=== PATIENT | male | born 1945 | race Caucasian/White ===

== ENCOUNTER 2020-02-26 23:45 | Inpatient (IN) ==
[2020-02-26] MEDS ORDERED: SODIUM CHLORIDE 0.9% 500 ML IV STA (23:55)
[2020-02-27 00:17] LABS: Basophils % 0.2 % (0.0-0.8); Hematocrit 25.9 VOL% (42.0-52.0); Hemoglobin 8.2 GM/DL (14.0-18.0); Immature Granulocytes % 1.6 %; Lymphocytes # 0.6 10*3/uL (1.4-4.0); Lymphocytes % 3.2 % (21.2-54.2); Mean Corpuscular HGB Conc 31.7 GM/DL (32-36); Mean Corpuscular Volume 88.4 FL (87-102); Mean Platelet Volume 9.7 FL (9.6-12.0); Monocytes % 9.3 % (1.7-12.7); Neutrophils % 85.7 % (38.7-73.9); Platelet Count 303 T/CUMM (130-400); Red Blood Count 2.93 MC/CUMM (3.8-5.5); Red Cell Distribution Width 17.2 % (9.3-17.3); White Blood Count 19.4 T/CUMM (4-12)
[2020-02-27 00:21] LABS: Allen Test Positive; Pt O2 Delivery Device Ventilator
[2020-02-27 00:25] LABS: ABG Base Excess -10.3 MMOL/L (-2.5-2.5); ABG HCO3 16.2 MMOL/L (20-26); ABG Oxygen Saturation 99.9 % (95-100); ABG PCO2 37.2 MM HG (35-48); ABG PH 7.249 (7.35-7.45); ABG TCO2 15.6 MMOL/L (23-27)
[2020-02-27 00:29] LABS: Bilirubin,Urine Negative (Negative); Blood, Urine Small mg/dL (Negative); Glucose,Urine (UA) Negative (Negative); Granular Casts,Urine 5 /LPF (0-1); Ketones,Urine Negative (Negative); Mucus,Urine Occasional /LPF (Occasional); Nitrite,Urine Negative (Negative); Protein,Urine 30 MG/DL; RBC,Urine 23 /HPF (0-4); Red Blood Cell Casts,Urine 1 /LPF (<1); Urine Appearance Slightly Hazy (Clear); Urine Color Amber (Yellow); Urine Specific Gravity 1.013 (1.001-1.035); Urine Urobilinogen < 2.0 EU/DL (0.2-1.0); WBC,Urine 18 /HPF (0-6)
[2020-02-27 00:35] LABS: Albumin 2.1 G/DL (3.4-5.0); Bilirubin,Total 0.8 MG/DL (0.2-1.0); Calcium 8.5 MG/DL (8.5-10.1); Total Protein 6.2 G/DL (6.4-8.3)
[2020-02-27 00:47] LABS: INR 1.1; PT Patient Result 11.6 SECS (9.8-11.9)
[2020-02-27] MEDS ORDERED: PIPERACILLIN/TAZOBACTAM 3,375 MG in SODIUM CHLORIDE 0.9% 100 ML IV STA (00:48)
[2020-02-27] MEDS ORDERED: PIPERACILLIN/TAZOBACTAM 3,375 MG VIAL IV ONE (01:33)
[2020-02-27] MEDS ORDERED: SODIUM CHLORIDE 0.9% 250 ML IV ONE (01:34)
[2020-02-27] MEDS ORDERED: SODIUM CHLORIDE 0.9% 1,000 ML IV STA (02:38)
[2020-02-27] MEDS ORDERED: ALBUTEROL 2.5 MG/3 ML NEB RESP TX PRN (02:56)
[2020-02-27 04:30] LABS: Basophils % 0.2 % (0.0-0.8); Eosinophils % 0.1 % (0.00-10.9); Hematocrit 21.3 VOL% (42.0-52.0); Hemoglobin 6.8 GM/DL (14.0-18.0); Immature Granulocytes % 1.4 %; Immature Granulocytes Absolute 0.22 #; Lymphocytes # 0.9 10*3/uL (1.4-4.0); Lymphocytes % 5.4 % (21.2-54.2); Mean Corpuscular HGB Conc 31.9 GM/DL (32-36); Mean Corpuscular Volume 89.1 FL (87-102); Mean Platelet Volume 9.9 FL (9.6-12.0); Monocytes % 7.8 % (1.7-12.7); Neutrophils % 85.1 % (38.7-73.9); Platelet Count 283 T/CUMM (130-400); Red Blood Count 2.39 MC/CUMM (3.8-5.5); Red Cell Distribution Width 17.2 % (9.3-17.3); White Blood Count 16.2 T/CUMM (4-12)
[2020-02-27 04:42] LABS: INR 1.1; PT Patient Result 11.8 SECS (9.8-11.9)
[2020-02-27 04:49] LABS: Troponin I 0.417 NG/ML (0.00-0.045)
[2020-02-27] MEDS ORDERED: VANCOMYCIN INJ 1,000 MG in SODIUM CHLORIDE 0.9% 250 ML IV PRN (04:50)
[2020-02-27 04:55] LABS: Bilirubin,Total 0.7 MG/DL (0.2-1.0); Calcium 8.5 MG/DL (8.5-10.1); Risk Ratio 2.81; Thyroid Stimulating Hormone 0.89 uIU/ml (0.358-3.74); Total Protein 6.1 G/DL (6.4-8.3); VLDL CHOLESTEROL 18.8 MG/DL
[2020-02-27] MEDS: LACTATED RINGERS 1,000 ML IV SCH ×3 (05:00→12:59)
[2020-02-27] MEDS ORDERED: VANCOMYCIN INJ 2,000 MG in SODIUM CHLORIDE 0.9% 500 ML IV ONE (06:00)
[2020-02-27 07:06] LABS: Troponin I 0.484 NG/ML (0.00-0.045)
[2020-02-27] MEDS: ENOXAPARIN 30 MG/0.3 ML SYRINGE SUBCUT SCH (09:29)
[2020-02-27] MEDS: PANTOPRAZOLE 40 MG VIAL IV SCH (09:29)
[2020-02-27] MEDS: PIPERACILLIN/TAZOBACTAM 3,375 MG in SODIUM CHLORIDE 0.9% 100 ML IV SCH ×2 (09:35→18:26)
[2020-02-27] MEDS: RANOLAZINE 500 MG TABLET PO SCH ×2 (10:11→23:13)
[2020-02-27] MEDS ORDERED: DEXTROSE 50% 25 GM/50 ML VIAL IV PRN (12:58)
[2020-02-27] MEDS ORDERED: GLUCAGON 1 MG VIAL IM PRN (12:58)
[2020-02-27] MEDS: SODIUM BICARB INJ 150 MEQ in DEXTROSE 5% 850 ML IV SCH (14:29)
[2020-02-27 18:51] LABS: Hematocrit 26.1 VOL% (42.0-52.0); Hemoglobin 8.4 GM/DL (14.0-18.0)
[2020-02-27] MEDS: ATORVASTATIN 80 MG TABLET PO SCH (23:13)
[2020-02-28] MEDS: PIPERACILLIN/TAZOBACTAM 3,375 MG in SODIUM CHLORIDE 0.9% 100 ML IV SCH ×3 (03:00→17:55)
[2020-02-28] MEDS: SODIUM BICARB INJ 150 MEQ in DEXTROSE 5% 850 ML IV SCH ×3 (03:45→22:17)
[2020-02-28 05:01] LABS: Basophils # 0.1 10*3/uL (0.0-0.2); Basophils % 0.4 % (0.0-0.8); Eosinophils # 0.1 10*3/uL (0.0-0.87); Eosinophils % 0.9 % (0.00-10.9); Hematocrit 27.2 VOL% (42.0-52.0); Hemoglobin 8.7 GM/DL (14.0-18.0); Immature Granulocytes % 0.7 %; Immature Granulocytes Absolute 0.09 #; Lymphocytes # 0.6 10*3/uL (1.4-4.0); Lymphocytes % 4.5 % (21.2-54.2); Mean Corpuscular Volume 86.6 FL (87-102); Neutrophils % 85.5 % (38.7-73.9); Platelet Count 290 T/CUMM (130-400); Red Blood Count 3.14 MC/CUMM (3.8-5.5); White Blood Count 12.3 T/CUMM (4-12)
[2020-02-28 05:20] LABS: Calcium 8.8 MG/DL (8.5-10.1); Osmolality,Calculated 283.2 MOS/KG (273-304)
[2020-02-28 05:36] LABS: Eosinophils 1 % (0-10); Hypochromasia 1+; Lymphocytes 5 % (20-55); Microcytosis 1+; Ovalocytes Slight; Platelet Estimate Adequate; Segmented Neutrophils 90 % (50-85); Total Cells Counted 100
[2020-02-28] MEDS ORDERED: VANCOMYCIN INJ 1,000 MG in SODIUM CHLORIDE 0.9% 250 ML IV ONE (09:00)
[2020-02-28] MEDS: RANOLAZINE 500 MG TABLET PO SCH ×2 (11:02→20:08)
[2020-02-28] MEDS: PANTOPRAZOLE 40 MG VIAL IV SCH (11:03)
[2020-02-28] MEDS: CLOPIDOGREL 75 MG TABLET PO SCH (11:03)
[2020-02-28] MEDS: ENOXAPARIN 30 MG/0.3 ML SYRINGE SUBCUT SCH (11:29)
[2020-02-28] MEDS: MULTIVITAMIN LIQUID (CENTRUM) 60 ML BOTTLE PO SCH (11:29)
[2020-02-28] MEDS: carvediloL 6.25 MG TABLET PO SCH (20:08)
[2020-02-28] MEDS: ATORVASTATIN 80 MG TABLET PO SCH (20:08)
[2020-02-28] MEDS: TEMAZEPAM 15 MG CAPSULE PO PRN (21:04)
[2020-02-29] MEDS: PIPERACILLIN/TAZOBACTAM 3,375 MG in SODIUM CHLORIDE 0.9% 100 ML IV SCH ×3 (01:45→17:44)
[2020-02-29 06:09] LABS: Basophils % 0.4 % (0.0-0.8); Eosinophils # 0.2 10*3/uL (0.0-0.87); Eosinophils % 2.1 % (0.00-10.9); Hemoglobin 8.4 GM/DL (14.0-18.0); Immature Granulocytes % 0.8 %; Immature Granulocytes Absolute 0.08 #; Lymphocytes # 0.8 10*3/uL (1.4-4.0); Lymphocytes % 7.6 % (21.2-54.2); Mean Corpuscular HGB Conc 32.3 GM/DL (32-36); Mean Corpuscular Volume 85.2 FL (87-102); Monocytes % 8.4 % (1.7-12.7); Neutrophils % 80.7 % (38.7-73.9); Platelet Count 295 T/CUMM (130-400); Red Blood Count 3.05 MC/CUMM (3.8-5.5); White Blood Count 9.9 T/CUMM (4-12)
[2020-02-29 06:32] LABS: Calcium 8.7 MG/DL (8.5-10.1); Osmolality,Calculated 291.3 MOS/KG (273-304)
[2020-02-29] MEDS ORDERED: POTASSIUM CHLORIDE RIDER 10 MEQ in PREMIX 1 EACH IV PRN (08:46)
[2020-02-29] MEDS ORDERED: MAGNESIUM SULF RIDER 2 GM in PREMIX 1 EACH IV PRN (08:46)
[2020-02-29] MEDS ORDERED: DIAZEPAM 5 MG TABLET ONE (09:23)
[2020-02-29] MEDS ORDERED: diphenhydrAMINE CAP 25 MG CAPSULE ONE (09:23)
[2020-02-29] MEDS: SODIUM BICARB INJ 150 MEQ in DEXTROSE 5% 850 ML IV SCH (10:05)
[2020-02-29] MEDS: ENOXAPARIN 30 MG/0.3 ML SYRINGE SUBCUT SCH (10:06)
[2020-02-29] MEDS: PANTOPRAZOLE 40 MG VIAL IV SCH (10:06)
[2020-02-29] MEDS: carvediloL 6.25 MG TABLET PO SCH ×2 (10:07→20:55)
[2020-02-29] MEDS: CLOPIDOGREL 75 MG TABLET PO SCH (10:07)
[2020-02-29] MEDS: ASPIRIN EC 81 MG TABLET PO SCH (10:07)
[2020-02-29] MEDS: RANOLAZINE 500 MG TABLET PO SCH ×2 (10:07→20:54)
[2020-02-29] MEDS: MULTIVITAMIN LIQUID (CENTRUM) 60 ML BOTTLE PO SCH (10:08)
[2020-02-29] MEDS ORDERED: diphenhydrAMINE CAP 25 MG CAPSULE PO ONE (10:30)
[2020-02-29] MEDS ORDERED: DIAZEPAM 5 MG TABLET PO ONE (10:30)
[2020-02-29] MEDS ORDERED: LIDOCAINE 1% 20 ML VIAL ONE (10:44)
[2020-02-29] MEDS ORDERED: HEPARIN/NACL 0.9% 2 UNITS/ML 1,500 ML IV ONE (10:44)
[2020-02-29] MEDS ORDERED: NITROGLYCERIN DRIP 50 MG/250 ML BOTTLE IV ONE (10:44)
[2020-02-29] MEDS ORDERED: VERAPAMIL 5 MG/2 ML VIAL ONE (10:45)
[2020-02-29] MEDS ORDERED: HEPARIN 5,000 UNIT/1 ML VIAL ONE (10:45)
[2020-02-29] MEDS ORDERED: fentaNYL 100 MCG/2 ML VIAL ONE (12:07)
[2020-02-29] MEDS ORDERED: MIDAZOLAM 2 MG/2 ML VIAL ONE (12:07)
[2020-02-29] MEDS ORDERED: NOREPINEPHRINE 4 MG/4 ML VIAL IV ONE (12:42)
[2020-02-29] MEDS: ATORVASTATIN 80 MG TABLET PO SCH (20:54)
[2020-03-01] MEDS: PIPERACILLIN/TAZOBACTAM 3,375 MG in SODIUM CHLORIDE 0.9% 100 ML IV SCH ×3 (01:19→17:47)
[2020-03-01] MEDS: TEMAZEPAM 15 MG CAPSULE PO PRN (01:29)
[2020-03-01 04:46] LABS: Basophils % 0.4 % (0.0-0.8); Eosinophils # 0.2 10*3/uL (0.0-0.87); Eosinophils % 1.6 % (0.00-10.9); Hematocrit 26.1 VOL% (42.0-52.0); Hemoglobin 8.3 GM/DL (14.0-18.0); Immature Granulocytes % 0.8 %; Immature Granulocytes Absolute 0.09 #; Lymphocytes # 0.8 10*3/uL (1.4-4.0); Lymphocytes % 7.1 % (21.2-54.2); Mean Corpuscular HGB Conc 31.8 GM/DL (32-36); Mean Corpuscular Volume 87.6 FL (87-102); Monocytes % 8.1 % (1.7-12.7); Platelet Count 326 T/CUMM (130-400); Red Blood Count 2.98 MC/CUMM (3.8-5.5); Red Cell Distribution Width 17.2 % (9.3-17.3); White Blood Count 10.6 T/CUMM (4-12)
[2020-03-01 05:12] LABS: Calcium 8.8 MG/DL (8.5-10.1); Osmolality,Calculated 288.4 MOS/KG (273-304)
[2020-03-01] MEDS ORDERED: FUROSEMIDE 40 MG/4 ML VIAL IV ONE ×2 (06:34→09:20)
[2020-03-01] MEDS: SODIUM BICARB INJ 150 MEQ in DEXTROSE 5% 850 ML IV SCH ×3 (09:38→12:48)
[2020-03-01] MEDS: PANTOPRAZOLE 40 MG VIAL IV SCH (09:39)
[2020-03-01] MEDS: ASPIRIN EC 81 MG TABLET PO SCH (09:40)
[2020-03-01] MEDS: ENOXAPARIN 30 MG/0.3 ML SYRINGE SUBCUT SCH (09:40)
[2020-03-01] MEDS: RANOLAZINE 500 MG TABLET PO SCH ×2 (09:40→20:20)
[2020-03-01] MEDS: MULTIVITAMIN LIQUID (CENTRUM) 60 ML BOTTLE PO SCH (09:40)
[2020-03-01] MEDS: CLOPIDOGREL 75 MG TABLET PO SCH (09:40)
[2020-03-01] MEDS: carvediloL 6.25 MG TABLET PO SCH ×2 (09:40→20:19)
[2020-03-01] MEDS: ATORVASTATIN 80 MG TABLET PO SCH (20:21)
[2020-03-02] MEDS: SODIUM BICARB INJ 150 MEQ in DEXTROSE 5% 850 ML IV SCH ×2 (01:43→09:55)
[2020-03-02] MEDS: PIPERACILLIN/TAZOBACTAM 3,375 MG in SODIUM CHLORIDE 0.9% 100 ML IV SCH ×3 (01:46→17:48)
[2020-03-02 06:59] LABS: Calcium 8.7 MG/DL (8.5-10.1); Osmolality,Calculated 290.1 MOS/KG (273-304)
[2020-03-02] MEDS: PANTOPRAZOLE 40 MG VIAL IV SCH (09:23)
[2020-03-02] MEDS: carvediloL 6.25 MG TABLET PO SCH ×2 (09:28→21:35)
[2020-03-02] MEDS: CLOPIDOGREL 75 MG TABLET PO SCH (09:28)
[2020-03-02] MEDS: RANOLAZINE 500 MG TABLET PO SCH ×2 (09:28→21:35)
[2020-03-02] MEDS: ASPIRIN EC 81 MG TABLET PO SCH (09:28)
[2020-03-02] MEDS: ENOXAPARIN 30 MG/0.3 ML SYRINGE SUBCUT SCH (09:29)
[2020-03-02] MEDS: MULTIVITAMIN LIQUID (CENTRUM) 60 ML BOTTLE PO SCH (09:30)
[2020-03-02] MEDS: FUROSEMIDE 80 MG TABLET PO SCH (13:52)
[2020-03-02] MEDS: ATORVASTATIN 80 MG TABLET PO SCH (21:35)
[2020-03-03] MEDS: PIPERACILLIN/TAZOBACTAM 3,375 MG in SODIUM CHLORIDE 0.9% 100 ML IV SCH ×3 (01:24→17:25)
[2020-03-03 06:08] LABS: Basophils % 0.4 % (0.0-0.8); Eosinophils # 0.1 10*3/uL (0.0-0.87); Hematocrit 27.6 VOL% (42.0-52.0); Hemoglobin 8.8 GM/DL (14.0-18.0); Immature Granulocytes % 0.6 %; Immature Granulocytes Absolute 0.06 #; Lymphocytes # 0.9 10*3/uL (1.4-4.0); Mean Corpuscular HGB Conc 31.9 GM/DL (32-36); Mean Corpuscular Volume 87.1 FL (87-102); Mean Platelet Volume 9.8 FL (9.6-12.0); Monocytes % 6.6 % (1.7-12.7); Neutrophils % 82.4 % (38.7-73.9); Platelet Count 393 T/CUMM (130-400); Red Blood Count 3.17 MC/CUMM (3.8-5.5); White Blood Count 10.2 T/CUMM (4-12)
[2020-03-03 06:34] LABS: Calcium 8.6 MG/DL (8.5-10.1); Osmolality,Calculated 283.5 MOS/KG (273-304)
[2020-03-03] MEDS: PANTOPRAZOLE 40 MG VIAL IV SCH (08:57)
[2020-03-03] MEDS: CLOPIDOGREL 75 MG TABLET PO SCH (09:22)
[2020-03-03] MEDS: ASPIRIN EC 81 MG TABLET PO SCH (09:22)
[2020-03-03] MEDS: carvediloL 6.25 MG TABLET PO SCH (09:22)
[2020-03-03] MEDS: FUROSEMIDE 80 MG TABLET PO SCH (09:22)
[2020-03-03] MEDS: MULTIVITAMIN LIQUID (CENTRUM) 60 ML BOTTLE PO SCH (09:22)
[2020-03-03] MEDS: RANOLAZINE 500 MG TABLET PO SCH ×2 (09:23→20:22)
[2020-03-03] MEDS: ENOXAPARIN 30 MG/0.3 ML SYRINGE SUBCUT SCH ×2 (09:24→09:51)
[2020-03-03] MEDS: carvediloL 12.5 MG TABLET PO SCH (17:24)
[2020-03-03] MEDS: TEMAZEPAM 15 MG CAPSULE PO PRN (20:22)
[2020-03-03] MEDS: ATORVASTATIN 80 MG TABLET PO SCH (20:22)
[2020-03-04] MEDS: PIPERACILLIN/TAZOBACTAM 3,375 MG in SODIUM CHLORIDE 0.9% 100 ML IV SCH (01:39)
[2020-03-04 06:52] LABS: Basophils % 0.4 % (0.0-0.8); Eosinophils # 0.2 10*3/uL (0.0-0.87); Eosinophils % 2.2 % (0.00-10.9); Hematocrit 29.7 VOL% (42.0-52.0); Hemoglobin 9.3 GM/DL (14.0-18.0); Lymphocytes # 0.9 10*3/uL (1.4-4.0); Lymphocytes % 9.4 % (21.2-54.2); Mean Corpuscular HGB Conc 31.3 GM/DL (32-36); Mean Corpuscular Volume 87.9 FL (87-102); Mean Platelet Volume 9.4 FL (9.6-12.0); Monocytes % 7.8 % (1.7-12.7); Neutrophils % 79.2 % (38.7-73.9); Platelet Count 386 T/CUMM (130-400); Red Blood Count 3.38 MC/CUMM (3.8-5.5); White Blood Count 9.7 T/CUMM (4-12)
[2020-03-04 07:19] LABS: Calcium 8.5 MG/DL (8.5-10.1); Osmolality,Calculated 280.7 MOS/KG (273-304)
[2020-03-04] MEDS: CLOPIDOGREL 75 MG TABLET PO SCH (08:43)
[2020-03-04] MEDS: ASPIRIN EC 81 MG TABLET PO SCH (08:44)
[2020-03-04] MEDS: carvediloL 12.5 MG TABLET PO SCH ×2 (08:44→17:04)
[2020-03-04] MEDS: RANOLAZINE 500 MG TABLET PO SCH ×2 (08:44→20:47)
[2020-03-04] MEDS: MULTIVITAMIN LIQUID (CENTRUM) 60 ML BOTTLE PO SCH (08:45)
[2020-03-04] MEDS: FUROSEMIDE 20 MG TABLET PO SCH (08:45)
[2020-03-04] MEDS: ENOXAPARIN 30 MG/0.3 ML SYRINGE SUBCUT SCH ×3 (08:47→09:06)
[2020-03-04] MEDS: PANTOPRAZOLE 40 MG VIAL IV SCH (09:34)
[2020-03-04] MEDS: ceFAZolin 2,000 MG in PREMIX 1 EACH IV SCH ×2 (10:33→17:04)
[2020-03-04] MEDS ORDERED: POTASSIUM CHLORIDE 20 MEQ TABLET PO ONE (12:08)
[2020-03-04] MEDS ORDERED: MAGNESIUM SULF RIDER 2 GM in PREMIX 1 EACH IV PRN (12:40)
[2020-03-04] MEDS: ATORVASTATIN 80 MG TABLET PO SCH (20:47)
[2020-03-05] MEDS: ceFAZolin 2,000 MG in PREMIX 1 EACH IV SCH ×3 (01:52→22:00)
[2020-03-05] MEDS: TEMAZEPAM 15 MG CAPSULE PO PRN (02:00)
[2020-03-05 06:28] LABS: Basophils # 0.1 10*3/uL (0.0-0.2); Basophils % 0.6 % (0.0-0.8); Eosinophils # 0.2 10*3/uL (0.0-0.87); Eosinophils % 2.2 % (0.00-10.9); Hematocrit 27.3 VOL% (42.0-52.0); Hemoglobin 8.8 GM/DL (14.0-18.0); Lymphocytes % 10.6 % (21.2-54.2); Mean Corpuscular HGB Conc 32.2 GM/DL (32-36); Mean Corpuscular Volume 87.2 FL (87-102); Mean Platelet Volume 9.3 FL (9.6-12.0); Monocytes % 7.7 % (1.7-12.7); Neutrophils % 77.9 % (38.7-73.9); Platelet Count 404 T/CUMM (130-400); Red Blood Count 3.13 MC/CUMM (3.8-5.5); Red Cell Distribution Width 17.2 % (9.3-17.3); White Blood Count 9.6 T/CUMM (4-12)
[2020-03-05 06:34] LABS: Calcium 8.4 MG/DL (8.5-10.1); Osmolality,Calculated 285.3 MOS/KG (273-304)
[2020-03-05] MEDS: ENOXAPARIN 30 MG/0.3 ML SYRINGE SUBCUT SCH (08:57)
[2020-03-05] MEDS: PANTOPRAZOLE 40 MG VIAL IV SCH (08:57)
[2020-03-05] MEDS: RANOLAZINE 500 MG TABLET PO SCH ×2 (08:58→22:00)
[2020-03-05] MEDS: ISOSORBIDE MONONITRATE 60 MG TABLET PO SCH (08:58)
[2020-03-05] MEDS: carvediloL 12.5 MG TABLET PO SCH (08:58)
[2020-03-05] MEDS: ASPIRIN EC 81 MG TABLET PO SCH (08:58)
[2020-03-05] MEDS: FUROSEMIDE 20 MG TABLET PO SCH (08:58)
[2020-03-05] MEDS: CLOPIDOGREL 75 MG TABLET PO SCH (08:58)
[2020-03-05] MEDS: MULTIVITAMIN LIQUID (CENTRUM) 60 ML BOTTLE PO SCH (09:12)
[2020-03-05] MEDS: hydrALAZINE 25 MG TABLET PO SCH ×2 (14:56→22:00)
[2020-03-05] MEDS: POTASSIUM CHLORIDE RIDER 10 MEQ in PREMIX 1 EACH IV PRN ×2 (16:02→20:27)
[2020-03-05] MEDS: carvediloL 25 MG TABLET PO SCH (16:02)
[2020-03-05] MEDS: ATORVASTATIN 80 MG TABLET PO SCH (22:00)
[2020-03-06] MEDS: ceFAZolin 2,000 MG in PREMIX 1 EACH IV SCH ×2 (02:29→09:38)
[2020-03-06 06:10] LABS: Calcium 8.6 MG/DL (8.5-10.1); Osmolality,Calculated 282.4 MOS/KG (273-304)
[2020-03-06] MEDS ORDERED: POTASSIUM CHLORIDE 20 MEQ TABLET PO ONE (09:30)
[2020-03-06] MEDS: RANOLAZINE 500 MG TABLET PO SCH ×2 (09:37→21:49)
[2020-03-06] MEDS: hydrALAZINE 25 MG TABLET PO SCH (09:37)
[2020-03-06] MEDS: CLOPIDOGREL 75 MG TABLET PO SCH (09:37)
[2020-03-06] MEDS: ASPIRIN EC 81 MG TABLET PO SCH (09:37)
[2020-03-06] MEDS: ISOSORBIDE MONONITRATE 60 MG TABLET PO SCH (09:37)
[2020-03-06] MEDS: carvediloL 25 MG TABLET PO SCH ×2 (09:37→16:15)
[2020-03-06] MEDS: ENOXAPARIN 30 MG/0.3 ML SYRINGE SUBCUT SCH (09:38)
[2020-03-06] MEDS: PANTOPRAZOLE 40 MG VIAL IV SCH (09:38)
[2020-03-06] MEDS: MULTIVITAMIN LIQUID (CENTRUM) 60 ML BOTTLE PO SCH (09:40)
[2020-03-06] MEDS: ATORVASTATIN 80 MG TABLET PO SCH (21:49)
[2020-03-07 06:07] LABS: Calcium 8.6 MG/DL (8.5-10.1); Osmolality,Calculated 288.1 MOS/KG (273-304)
[2020-03-07] MEDS ORDERED: PANTOPRAZOLE 40 MG TABLET PO SCH (06:30)
[2020-03-07] MEDS: ISOSORBIDE MONONITRATE 60 MG TABLET PO SCH (09:29)
[2020-03-07] MEDS: carvediloL 25 MG TABLET PO SCH (09:29)
[2020-03-07] MEDS: RANOLAZINE 500 MG TABLET PO SCH (09:29)
[2020-03-07] MEDS: CLOPIDOGREL 75 MG TABLET PO SCH (09:29)
[2020-03-07] MEDS: ENOXAPARIN 30 MG/0.3 ML SYRINGE SUBCUT SCH (09:30)
[2020-03-07] MEDS: ASPIRIN EC 81 MG TABLET PO SCH (09:31)
[2020-03-07] MEDS: MULTIVITAMIN LIQUID (CENTRUM) 60 ML BOTTLE PO SCH (09:31)
[2020-03-07 12:09] VITALS: BP 146/67
== END 2020-03-07 14:18 | disposition swing bed (61) | DRG 208 ==
LOC: N.ED 23:45 → SUATTDRO 02-27 02:56 → N.EDINP 02-27 02:56 → N.ICU 02-27 04:21 → N.TELES 02-28 09:37
PROVIDERS: ADMIT Internal Medicine; ATTEND Internal Medicine